=== PATIENT | male | born 1980 | race Caucasian/White ===

== ENCOUNTER 2016-12-10 16:08 | Emergency (ER) | payer OTHER | END 2016-12-10 17:04 | disposition home or self-care (01) | LOC: ER 16:08 | DX: M54.5 Low back pain (principal); J06.9 Acute upper respiratory infection, unspecified; F31.9 Bipolar disorder, unspecified; F41.9 Anxiety disorder, unspecified; F17.200 Nicotine dependence, unspecified, uncomplicated; Z79.899 Other long term (current) drug therapy; Z88.6 Allergy status to analgesic agent ==